=== PATIENT | male | born 1990 | race Caucasian/White ===

== ENCOUNTER 2024-09-11 06:15 | Emergency (ER) | payer BC, SELFPAY ==
--- NOTE | ~2024-09-11 | XR_ITS ---
EXAMINATION: XR chest 2V DATE: 09/11/2024 09:03 INDICATION: Palpitations. Dizziness. TECHNIQUE: Frontal and lateral views of the chest were obtained. COMPARISON: None. FINDINGS: There is no pneumonia, pleural effusion, or pneumothorax. The heart size is normal. 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 There is plate and screw fixation of left clavicle. IMPRESSION: 1. No acute cardiopulmonary disease. Reviewed, dictated and finalized at location [facility] [employer]
[2024-09-11 06:26] VITALS: BP 125/71; PULSE 84; RESP 15; TEMP 36.2; O2SAT 100
[2024-09-11 07:38] VITALS: BP 139/91; PULSE 74; RESP 16; O2SAT 99
--- NOTE | 2024-09-11 08:29 | ECG_ITS ---
Test Date: 2024-09-11 08:50:28 Measurements Intervals [place] Rate: 75 P: 61 UT: 180 QRS: 51 QRSD: 97 T: 40 QT: 379 QTc: 424 Interpretive Statements SINUS RHYTHM WITH SINUS ARRHYTHMIA No previous ECG available for comparison Electronically Signed On 09-11-2024 10:15:07 [employer] by Wellington Unger M.D.
--- NOTE | 2024-09-11 08:40 | ED_ITS ---
HPI - General Adult General Chief complaint: Anxiety Stated complaint: anxiety Time Seen by Provider: 09/11/24 07:58 History of Present Illness HPI narrative: Patient is a 34-year-old male who presents ER with reports of elevated heart rate. Occurred yesterday and his heart rate went up into the 170s. Last night he felt it again was not as high. No chest pain. It occurred after a hard workout. Has history of anxiety and has had his heart evaluated previously. Concerned he may have electrolyte abnormalities. No fevers or chills or sweats. No syncope. No exertional dyspnea or chest pain. Related Data Allergies Allergy/AdvReac Type Severity Reaction Status Date / Time No Known Allergies Allergy Verified 09/11/24 06:28 Review of Systems 2 Review of Systems: All systems reviewed & are unremarkable except as noted in HPI and below Constitutional: Constitutional: Reports no additional constitutional complaints Cardiovascular: Cardiovascular: Denies chest pain, Reports rapid heart rate and Denies radiating jaw, neck or arm pain Respiratory: Respiratory: Reports no additional respiratory complaints Gastrointestinal: Gastrointestinal: Reports no additional gastrointestinal complaints [facility] Past Medical History Medical History (Updated 09/11/24 @ 09:27 by Roni Garcia MD) Healthy adult male Surgical History Surgical History (Updated 09/11/24 @ 08:41 by Rnoi Garcia MD) No pertinent past surgical history Exam 2 Narrative: GENERAL: Well-appearing, well-nourished, and in no acute distress. HEAD: Normocephalic, atraumatic. ENT: Mucous membranes moist. CHEST: Clear to auscultation. No respiratory distress. HEART: Regular rate and rhythm. Normal peripheral pulses. ABDOMEN: Soft, nontender, nondistended. EXTREMITIES: Normal range of motion. No edema. SKIN: Warm, dry, no rash. NEURO: Alert and oriented x3. PSYCH: Normal mood and affect. Course Course Emergency Course: CBC/CMP/ magnesium normal. EKG unremarkable. Normal chest x-ray. Appropriate for discharge home. Likely anxiety. Vital Signs Vital signs: Vital Signs Temperature 97.1 F L 09/11/24 06:26 Pulse Rate 84 09/11/24 06:26 Respiratory Rate 15 09/11/24 06:26 Blood Pressure 125/71 09/11/24 06:26 Pulse Oximetry 100 09/11/24 06:26 Oxygen Delivery Room Air 09/11/24 06:26 Temperature 97.1 F L 09/11/24 06:26 Pulse Rate 76 09/11/24 09:08 Respiratory Rate 12 09/11/24 09:08 Blood Pressure 118/82 09/11/24 09:08 Pulse Oximetry 98 09/11/24 09:08 Oxygen Delivery Room Air 09/11/24 06:26 Medical Decision Making Vital Signs Vital Signs: Vital Signs Temperature 97.1 F L 09/11/24 06:26 Pulse Rate 84 09/11/24 06:26 Respiratory Rate 15 09/11/24 06:26 Blood Pressure 125/71 09/11/24 06:26 Pulse Oximetry 100 09/11/24 06:26 Oxygen Delivery Room Air 09/11/24 06:26 Temperature 97.1 F L 09/11/24 06:26 Pulse Rate 76 09/11/24 09:08 Respiratory Rate 12 09/11/24 09:08 Blood Pressure 118/82 09/11/24 09:08 Pulse Oximetry 98 09/11/24 09:08 Oxygen Delivery Room Air 09/11/24 06:26 Lab Data 09/11/24 08:41 09/11/24 08:41 Labs: Lab Results 09/11/24 Range/Units 08:41 WBC 7.3 (4.5-10.0) K/mm3 RBC 4.93 (4.6-6.20) M/mm3 Hgb 14.6 (14.0-18.0) g/dL Hct 43.5 (42.0-52.0) % MCV 88.2 (80-100) fl MCH 29.6 (26-34) pg MCHC 33.6 (32-36) g/dl RDW 13.5 (11.5-14.5) % Plt Count 197 (150-375) k/mm3 MPV 11.1 H (7.4-10.4) fl Immature Gran % (Auto) 0.1 (0-0.5) % Neut % (Auto) 65.0 (45.5-73.1) % Lymph % (Auto) 26.5 (18.3-44.2) % Mcdowell % (Auto) 5.8 (2.6-8.5) % Eos % (Auto) 2.2 (0-4.4) % Baso % (Auto) 0.4 (0.2-1.2) % Lymph # (Auto) 1.93 (0.9-3.2) K/mm3 Mcdowell # (Auto) 0.4 (0.1-0.6) K/mm3 Eos # (Auto) 0.2 (0-0.3) K/mm3 Baso # (Auto) 0.0 (0.0-0.1) K/mm3 Abs Immat Gran (auto) 0.01 (0.00-0.031) K/mm3 Absolute Neuts (auto) 4.7 (1.3-6.7) K/mm3 Absolute Nucleated RBC 0.000 (0.0-0.012) K/mm3 Nucleated RBC % 0.0 (0.0-0.2) % Sodium 138 (137-145) mmol/L Potassium 4.5 (3.4-5.0) mmol/L Chloride 107 (98-107) mmol/L Carbon Dioxide 26 (22-30) mmol/L Anion Gap 5 (4-12) mmol/L BUN 20 (9-20) mg/dL Creatinine 0.90 (0.7-1.3) mg/dL Estim Creat Clear Calc 115 ml/min Estimated GFR > 60 (59 - ) Glucose 94 (65-110) mg/dL Calcium 9.1 (8.4-10.2) mg/dL Magnesium 2.0 (1.6-2.3) mg/dL Total Bilirubin 0.4 (0.2-1.3) mg/dL AST 25 (17-59) U/L ALT 16 (6-50) U/L Alkaline Phosphatase 75 (38-126) U/L Total Protein 7.0 (6.3-8.2) g/dL Albumin 4.2 (3.5-5.1) g/dL Imaging Data Radiologist's impression: ITS Impressions Chest X-Ray 09/11/24 09:13 IMPRESSION: 1. No acute cardiopulmonary disease. ECG Data EKG #1: ECG completion date: 09/11/24 ECG completion time: 08:50 EKG Interpretation: normal rate (75), sinus rhythm, non-specific ST changes ( Early repolarization abnormality), normal QRS, normal QT and NL axis Discharge Plan Discharge Clinical Impression: Heart palpitations Patient Disposition: Home, Self-Care Condition: Stable Instructions: Heart Palpitations (ED) Additional Instructions: Please return to the emergency department if you develop severe and persistent chest pain, difficulty breathing, dizziness, leg swelling or if you are coughing up blood as these can be signs of a medical emergency. Please call your doctor for a follow up appointment to determine the need for further testing. Patient Language: Icelandic Follow-up/Referrals: PHYSICIAN NOT ON STAFF,NONSTAFF [Primary Care Provider] - 1 Week
[2024-09-11 08:46] LABS: Basophils Percent Auto 0.4 % (0.2-1.2); Eosinophils Absolute Auto 0.2 K/mm3 (0-0.3); Eosinophils Percent Auto 2.2 % (0-4.4); Hematocrit 43.5 % (42.0-52.0); Hemoglobin 14.6 g/dL (14.0-18.0); Immature Granulocyte Absolute 0.01 K/mm3 (0.00-0.031); Immature Granulocyte Percent A 0.1 % (0-0.5); Lymphocytes Absolute Auto 1.93 K/mm3 (0.9-3.2); Lymphocytes Percent Auto 26.5 % (18.3-44.2); Mean Corpuscular HGB Conc 33.6 g/dl (32-36); Mean Corpuscular Hemoglobin 29.6 pg (26-34); Mean Corpuscular Volume 88.2 fl (80-100); Mean Platelet Volume 11.1 fl (7.4-10.4); Monocytes Absolute Auto 0.4 K/mm3 (0.1-0.6); Monocytes Percent Auto 5.8 % (2.6-8.5); Neutrophils Absolute Auto 4.7 K/mm3 (1.3-6.7); Platelet Count Result 197 k/mm3 (150-375); Red Blood Count 4.93 M/mm3 (4.6-6.20); Red Cell Distribution Width 13.5 % (11.5-14.5); White Blood Count 7.3 K/mm3 (4.5-10.0)
[2024-09-11 09:08] VITALS: BP 118/82; PULSE 76; RESP 12; O2SAT 98
[2024-09-11 09:18] LABS: Alanine Aminotransferase 16 U/L (6-50); Albumin Level 4.2 g/dL (3.5-5.1); Alkaline Phosphatase 75 U/L (38-126); Anion Gap 5 mmol/L (4-12); Aspartate Amino Transferase 25 U/L (17-59); Bilirubin,Total 0.4 mg/dL (0.2-1.3); Blood Urea Nitrogen 20 mg/dL (9-20); Calcium 9.1 mg/dL (8.4-10.2); Carbon Dioxide 26 mmol/L (22-30); Chloride 107 mmol/L (98-107); Estimated CRCL calculation 115 ml/min; Estimated Glomerular Filt Rate > 60; Glucose 94 mg/dL (65-110); Potassium 4.5 mmol/L (3.4-5.0); Sodium 138 mmol/L (137-145)
[2024-09-11 09:54] VITALS: BP 125/82; PULSE 81; RESP 18; TEMP 36.5; O2SAT 100
--- OUTSIDE RECORDS SUMMARY | 2024-09-18 06:27 | XMS_ITS | Encounter Summary ---
Author Organization [facility] Address [facility] access hospital[address] [facility] [place] [address] [place] [address] Care Team Providers Care Printing Technician Name Role Phone Unavailable Primary Care Provider Unavailabl e Encounter Details Date Type Department Care Team (Late st Contact Info) Description 07/08/[address] 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
--- OUTSIDE RECORDS SUMMARY | 2024-09-18 06:27 | XMS_ITS | Encounter Summary ---
Author Organization [facility] Address [address] [place] [address]. 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 No / Unsure 05/07/2022 2:24 AM CDT documented as of this encounter Plan of Treatment Not on file documented as of this encounter Visit Diagnoses Not on filedocumented in this encounter Care Teams Parts Identification Technician Relationship Specialty Start Date End Date Amanda Brooks MD [address] [place] [address] PCP - General FAMILY PRACTICE 05/07/22 documented as of this encounter
--- OUTSIDE RECORDS SUMMARY | 2024-09-18 06:27 | XMS_ITS | Encounter Summary ---
Author Organization [facility] Address [address] [place] [address]. [place] [address] [place] [address] Care Team Providers Care Wooden Box Maker Name Role Phone Amanda Brooks MD Primary Care Provider [phone] Reason for Visit * Reason Comments Chest Pain Encounter Details Date Type Department Care Team (Late st Contact Info) Description 05/07/2022 12:57 AM CDT - 05/07/2022 3:14 AM CDT Emergency [facility] Emergency [address] [place] [address] Neeraj Adames, CAMILA [address] [place] [address] Chest Pain Discharge Disposition: Home or Self Care (Routine Discharge) Social History Tobacco Use Types Packs/Day Years Used Date Smoking Tobacco: Never Assessed Sex and Gender Information Value Date Recorded Sex Assigned at Not on file Legal Sex Male 10:14 PM SHIP/REC/DOC CONTROL Gender Identity Not on file Sexual Orientation Not on file COVID-19 Exposure Response Date Recorded In the last 10 days, have yo u been in contact with someone who was confirmed or suspected to have Coronavirus/COVID-19? No / Unsure 05/07/2022 2:24 AM CDT documented as of this encounter Last Filed Vital Signs Vital Sign Reading Time Taken Comments Blood Pressure 112/83 05/07/2022 2:25 AM CDT Pulse 60 05/06/2022 9:17 PM CDT Temperature 36.7 ??C (98 ??F) 05/06/2022 9:17 PM CDT Respiratory Rate 16 05/07/2022 2:25 AM CDT Oxygen Saturation 100% 05/07/2022 2:25 AM CDT Inhaled Oxygen Concentration - - Weight 94 kg (207 lb 3.7 oz) 05/06/2022 9:17 PM CDT Height 184.2 cm (6' 0.5 ) 05/06/2022 9:17 PM CDT Body Mass Index 27.72 05/06/2022 9:17 PM CDT documented in this encounter Discharge Instructions * Discharge Instructions* Neeraj Adames NP - 05/07/2022 2:40 AM CDT Please read and follow additional written instructions provided. If prescribed medications, please fill them and take as directed. Consume at least two liters of fluid daily - preferably water. Unless otherwise unable to (such as allergic to or instructed not to use), you may take Tylenol 1000 mg every 6 hours and ibuprofen 600 mg every 6 hours as needed for pain/fever. Follow up with your doctor or doctor referral, call next business day to schedule an appointment for ED follow up in 7-10 days. Follow up with your doctor in 3 days if no improvement. Contact your doctor or return to ER if any new concerning symptoms. Thank you for choosing [facility] to serve you today. As discussed, it is important that you followup with your health care provider for examination as well as possible further testing and therapy. * Attachments The following attachments cannot be sent through Care Everywhere. * Chest Pain That Is Not Caused by the Heart Discharge Instructions (Gabonese) documented in this encounter ED Notes * Neeraj Adames NP - 05/07/2022 12:59 AM CDTAssociated Order(s): EKG Reading Chief Complaint Chief Complaint Patient presents with ??? Chest Pain History of Present Illness Patient is a 31-year-old male with a medical history of anxiety, that presents to the ED with complaints of midsternal chest pain. Onset of the chest pain was 8 PM yesterday, there are no aggravatingfactors, no relieving factors, no treatments tried. Patient denies any known injuries, indicates that the chest pain is now gone, went away after approximately 10 minutes, no previous cardiac history. The patient indicates that he exercises frequently and he never has chest pain during exercise. Ofnote, the patient indicates that he is weaning himself off of Klonopin for anxiety, has taken less today than he usually does. Patient indicates he does take propranolol as well for anxiety. The patient denies any current chest pain, shortness of breath, focal changes, or any other acute symptom. Medical History ALLERGIES: No Known Allergies MEDICATIONS: Prior to Admission medications Not on File PAST MEDICAL HISTORY: No past medical history on file. PAST SURGICAL HISTORY: No past surgical history on file. FAMILY HISTORY: No family history on file. SOCIAL HISTORY: Review of Systems Review of Systems Constitutional: Negative. HENT: Negative. Eyes: Negative. Respiratory: Negative. Cardiovascular: Positive for chest pain. Gastrointestinal: Negative. Genitourinary: Negative. Musculoskeletal: Negative. Skin: Negative. Neurological: Negative. Psychiatric/Behavioral: Negative. Physical Exam Filed Vitals: 05/06/22 2117 05/07/22 0225 BP: 125/70 112/83 Pulse: 60 Resp: 12 16 Temp: 98 ??F (36.7 ??C) TempSrc: Oral SpO2: 100% 100% Weight: 94 kg (207 lb 3.7 oz) Height: 6' 0.5 (1.842 m) Physical Exam Vitals reviewed. Constitutional: General: He is not in acute distress. Appearance: Normal appearance. He is not ill-appearing, toxic-appearing or diaphoretic. HENT: Head: Normocephalic. Nose: Nose normal. Eyes: General: Right eye: No discharge. Left eye: No discharge. Pupils: Pupils are equal, round, and reactive to light. Cardiovascular: Rate and Rhythm: Normal rate and regular rhythm. Pulses: Normal pulses. Heart sounds: Normal heart sounds. Pulmonary: Effort: Pulmonary effort is normal. No respiratory distress. Breath sounds: Normal breath sounds. No stridor. No wheezing, rhonchi or rales. Chest: Chest wall: No tenderness. Musculoskeletal: General: Normal range of motion. Skin: General: Skin is warm. Capillary Refill: Capillary refill takes less than 2 seconds. Neurological: Mental Status: He is alert and oriented to person, place, and time. Psychiatric: Mood and Affect: Mood normal. Behavior: Behavior normal. 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4 - 10.4 FL ABS. NEUTROPHILS 2.31 1.60 - 8.30 x10'3/uL ABS. LYMPHOCYTES 3.28 0.80 - 4.70 x10'3/uL ABS. MONOCYTES 0.59 0.00 - 1.50 x10'3/uL ABS. EOSINOPHILS 0.22 0.00 - 0.40 x10'3/uL ABS. BASOPHILS 0.03 0.00 - 0.20 x10'3/uL ABS. IMMATURE GRANULOCYTES 0.01 0.00 - 0.03 x10'3/uL ABS. NUCLEATED RBC'S 0.00 0.0 x10'3/uL BASIC METABOLIC PANEL Result Value Ref Range SODIUM 140 136 - 145 MMOL/L POTASSIUM 3.9 3.5 - 5.1 MMOL/L CHLORIDE S/P/B 108 (H) 98 - 107 MMOL/L CO2 26.2 21.0 - 32.0 MMOL/L GLUCOSE 98 74 - 106 MG/DL BUN 21 (H) 7 - 18 MG/DL CREATININE S/P/B 0.99 0.70 - 1.30 MG/DL CALCIUM 9.0 8.5 - 10.1 MG/DL ANION GAP 5.8 5.0 - 15.0 MMOL/L OSMOLALITY (CALC) 293 MOSM/KG GFR ESTIMATE >90 >90 ML/MIN/1.73 M2 GFR NOTES GFR REFERENCES: TROPONIN, QUANT Result Value Ref Range TROPONIN I HIGH SENSITIVITY 7 0 - 78 ng/L LIPASE Result Value Ref Range LIPASE 194 73 - 393 UNITS/L HEPATIC FUNCTION PANEL Result Value Ref Range BILIRUBIN TOTAL S/P/B 0.2 0.2 - 1.0 MG/DL BILIRUBIN DIRECT S/P/B 0.1 0.0 - 0.2 MG/DL ALKALINE PHOSPHATASE S/P/B 46 45 - 115 U/L AST 20 15 - 37 U/L ALT 21 16 - 61 U/L TOTAL PROTEIN S/P/B 7.2 6.4 - 8.2 G/DL ALBUMIN S/P/B 4.0 3.4 - 5.0 G/DL MAGNESIUM Result Value Ref Range MAGNESIUM 2.2 1.6 - 2.6 MG/DL THYROID STIM HORMONE, TSH Result Value Ref Range TSH 1.740 0.358 - 3.740 uIU/ML IMAGING STUDIES XR CHEST PA+LAT Final Result by User, [email or web address] (05/07 120) Date: 05/07/2022 1:10 AM Exam: XR CHEST PA+LAT Comparison: Chest radiography dated 12/04/2008. Technique: Two-view chest. History: Left-sided chest pain. Findings: The cardiac silhouette and pulmonary vascularity are within normal limits. There are no consolidations nor pleural effusions. There is no pneumothorax. There are calcified lymph nodes in the right hilum and central chest. The osseous structures appear normal. Impression: No acute cardiopulmonary disease process. Referred By: Interpreted By: Rebel Rincon MD, 05/07/2022 1:18 AM EKG Reading Date/Time: 05/07/2022 1:15 AM Performed by: Neeraj Adames NP Authorized by: Neeraj Adames NP Interpreted by ED physician (Dr. Silver) Comparison: not compared with previous ECG Previous ECG: no previous ECG available Rhythm: sinus rhythm Rate: normal QRS axis: normal Clinical impression: normal ECG Comments: No ST elevation. ED Course / Medical Decision Making VS are unremarkable. The patient is non toxic appearing. Differential diagnoses were considered anddiscussed with the patient, the patient's history, physical exam, and ancillary studies were taken into consideration for the patient's treatement. After reviewing the information and discussing the potential outcomes/risks/benefits, the patient's disposition was agreed upon. Portions of this note have been documented using software voice technology. Please excuse any typos. Unless otherwise documented, patient was not directly assessed/treated by Attending Physician. Attending Physician available for consult as needed, Dr. Silver. ED Course as of 05/07/22240May 07, 2022 0238 TSH: 1.740 [JE] 0238 MAGNESIUM: 2.2 [JE] 0238 LIPASE: 194 [JE] 0238 TROPONIN I HIGH SENSITIVITY: 7 [JE] 0238 TSH: 1.740 [JE] 0238 HEPATIC FUNCTION PANEL Unremarkable. [JE] 0238 CBC W/DIFF AUTOMATED(!) Unremarkable. [JE] 0238 BASIC METABOLIC PANEL(!) Unremarkable. [JE] 0239 XR chest radiologist Impression: No acute cardiopulmonary disease process. [JE] 0239 I discussed with the patient his results of his labs which were unremarkable, troponin negative, chest x-ray unremarkable, EKG normal sinus rhythm. Advised the patient this could be as a result of him weaning off of his benzodiazepine medication, could be musculoskeletal in nature, I discussedreturn precautions with the patient in detail. The patient verbalized understanding agreement the plan of care. 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 Patient states this occurred 4 months prior and tests were normal. Mahamed stateshx of anxiety, no known cardiac or respiratory hx documented in this encounter Plan of Treatment Not on file documented as of this encounter Procedures Procedure Name Priority Date/Time Associated Diagnosis Comments BASIC METABOLIC PANEL STAT 05/07/2022 1:24 AM CDT HEPATIC FUNCTION PANEL STAT 1:24 AM CDT TROPONIN, QUANT STAT 05/07/2022 1:24 AM CDT THYROID STIM HORMONE TSH STAT 1:24 AM CDT MAGNESIUM STAT 05/07/2022 1:24 AM CDT LIPASE STAT 05/07/2022 1:24 AM CDT CBC W/DIFF AUTOMATED STAT 05/07/2022 1:23 AM CDT ELECTROCARDIOGRAM REPORT Routine 1:15 AM CDT XR CHEST PA+LAT STAT 05/07/2022 1:15 AM CDT ECG 12-LEAD STAT 05/07/2022 12:00 AM CDT documented in this encounter Results * THYROID STIM HORMONE, TSH (05/07/2022 1:24 AM CDT) TSH 1.740 0.358 - 3.740 uIU/ML 05/07/2022 2:01 AM CDT [facility] Comment: ASSAY PERFORMED BY CHEMILUMINESCENCE METHODOLOGY USING [employer]. PATIENT RESULTS DETERMINED BY ASSAYS USING DIFFERENT MANUFACTURERS FOR METHODS MAY NOT BE COMPARABLE. 05/07/2022 1:24 AM CDT Neeraj Adames NP LABORATORY Final Result [facility] [address] [place] [address], [phone] * MAGNESIUM (05/07/2022 1:24 AM CDT) MAGNESIUM 2.2 1.6 - 2.6 MG/DL 05/07/2022 2:01 AM CDT [facility] 05/07/2022 1:24 AM CDT Neeraj Adames NP LABORATORY Final Result Performing Organization Address [facility] Co de Phone Number [facility] [address] [place] [address], [phone] * HEPATIC FUNCTION PANEL (05/07/2022 1:24 AM CDT) BILIRUBIN TOTAL S/P/B 0.2 0.2 - 1.0 MG/DL 05/07/2022 2:01 AM CDT [facility] BILIRUBIN DIRECT S/P/B 0.1 0.0 - 0.2 MG/DL 05/07/2022 2:01 AM CDT [facility] ALKALINE PHOSPHATASE S/P/B 46 45 - 115 U/L 05/07/2022 2:01 AM CDT [facility] AST 20 15 - 37 U/L 05/07/2022 2:01 AM CDT [facility] ALT 21 16 - 61 U/L 05/07/2022 2:01 AM CDT [facility] TOTAL PROTEIN S/P/B 7.2 6.4 - 8.2 G/DL 05/07/2022 2:01 AM CDT [facility] ALBUMIN S/P/B 4.0 3.4 - 5.0 G/DL 05/07/2022 2:01 AM CDT [facility] 05/07/2022 1:24 AM CDT us Neeraj Adames NP LABORATORY Final Result Performing Organization Address [facility] Co de Phone Number [facility] [address] [place] [address], [place] [phone] * LIPASE (05/07/2022 1:24 AM CDT) LIPASE 194 73 - 393 UNITS/L 05/07/2022 2:01 AM CDT [facility] 05/07/2022 1:24 AM CDT us Neeraj Adames NP LABORATORY Final Result Performing Organization Address [facility] de Phone Number [facility] [address] [place] [address], [phone] * TROPONIN, QUANT (05/07/2022 1:24 AM CDT) TROPONIN I HIGH SENSITIVITY 7 0 - 78 ng/L 05/07/2022 2:01 AM CDT [facility] 05/07/2022 1:24 AM CDT us Neeraj Adames NP LABORATORY Final Result Performing Organization Address [facility] Co de Phone Number [facility] [address] [place] [address], [place] [phone] * (ABNORMAL) BASIC METABOLIC PANEL (05/07/2022 1:24 AM CDT) SODIUM S/P/B 140 136 - 145 MMOL/L 05/07/2022 2:01 AM CDT [facility] POTASSIUM S/P/B 3.9 3.5 - 5.1 MMOL/L 05/07/2022 2:01 AM CDT [facility] CHLORIDE S/P/B 108(H) 98 - 107 MMOL/L 05/07/2022 2:01 AM [facility] CO2 26.2 21.0 - 32.0 MMOL/L 05/07/2022 2:01 AM [facility] GLUCOSE 98 74 - 106 MG/DL 05/07/2022 2:01 AM [facility] BUN 21(H) 7 - 18 MG/DL 05/07/2022 2:01 AM [facility] CREATININE S/P/B 0.99 0.70 - 1.30 MG/DL 05/07/2022 2:01 AM [facility] CALCIUM S/P/B 9.0 8.5 - 10.1 MG/DL 05/07/2022 2:01 AM [facility] ANION GAP 5.8 5.0 - 15.0 MMOL/L 05/07/2022 2:01 AM [facility] OSMOLALITY (CALC) 293 MOSM/KG 022 2:01 AM [facility] Comment:REFERENCE RANGE NOT ESTABLISHED GFR ESTIMATE >90 >90 ML/MIN/1. 73 M2 05/07/2022 2:01 AM [facility] GFR NOTES GFR REFERENCE S: 05/07/2022 2:01 AM [facility] Comment: THE ESTIMATED GFR IS CALCULATED USING THE 2020 CKD-EPI EQUATION. THE FOLLOWING CATEGORIES FOR GRADING RENAL FUNCTION ARE RECOMMENDED BY THE INTERNATIONAL SOCIETY OF NEPHROLOGY (KDIGO 2012 CLINICAL PRACTICE GUIDELINE). G1,NORMAL OR HIGH: >89 ml/min/1.73 m2 G2,MILDLY DECREASED: 60-89 ml/min/1.73 m2 G3A,MILDLY TO MODERATELY DECREASED: 45-59 ml/min/1.73 m2 G3B,MODERATELY TO SEVERELY DECREASED: 30-44 ml/min/1.73 m2 G4,SEVERELY DECREASED: 15-29 ml/min/1.73 m2 G5,KIDNEY FAILURE: <15 ml/min/1.73 m2 05/07/2022 1:24 AM CDT Neeraj Adames NP LABORATORY Final Result [facility] [address] [place] [address], [phone] * (ABNORMAL) CBC W/DIFF AUTOMATED (05/07/2022 1:23 AM CDT) WBC 6.4 4.0 - 10.8 x10'3/uL 05/07/2022 1:33 AM CDT [facility] RBC 4.83 4.50 - 6.10 x10'6/uL 05/07/2022 1:33 AM CDT [facility] HGB 14.4 13.0 - 18.0 G/DL 05/07/2022 1:33 AM CDT [facility] HCT 42.5 37.0 - 52.0 % 05/07/2022 1:33 AM CDT [facility] MCV 88.0 78.0 - 100.0 FL 05/07/2022 1:33 AM CDT [facility] MCH 29.8 27.0 - 31.0 PG 05/07/2022 1:33 AM CDT [facility] MCHC 33.9 33.0 - 36.0 G/DL 05/07/2022 1:33 AM CDT [facility] RDW 12.4 11.5 - 14.5 % 05/07/2022 1:33 AM CDT [facility] PLT 197 150 - 350 x10'3/uL 05/07/2022 1:33 AM CDT [facility] MPV 11.4(H) 7.4 - 10.4 FL 05/07/2022 1:33 AM CDT [facility] ABS. NEUTROPHILS 2.31 1.60 - 8.30 x10'3/uL 05/07/2022 1:33 AM CDT [facility] ABS. LYMPHOCYTES 3.28 0.80 - 4.70 x10'3/uL 05/07/2022 1:33 AM CDT [facility] ABS. MONOCYTES 0.59 0.00 - 1.50 x10'3/uL 05/07/2022 1:33 AM CDT [facility] ABS. EOSINOPHILS 0.22 0.00 - 0.40 x10'3/uL 05/07/2022 1:33 AM CDT [facility] ABS. BASOPHILS 0.03 0.00 - 0.20 x10'3/uL 05/07/2022 1:33 AM CDT [facility] ABS. IMMATURE GRANULOCYTES 0.01 0.00 - 0.03 x10'3/uL 05/07/2022 1:33 AM CDT [facility] ABS. NUCLEATED RBC'S 0.00 0.0 x10'3/uL 05/07/2022 1:33 AM CDT [facility] 05/07/2022 1:23 AM CDT Neeraj Adames NP LABORATORY Final Result Performing Organization Address City/State/[facility] Co de Phone Number [facility] [address] [place] [address], [phone] * EKG Reading (05/07/2022 1:15 AM CDT) Narrative Naresh Silver MD - 05/07/2022 1:15 AM CDT Neeraj Adames NP ? 05/07/2022 ??2:41 AM EKG Reading Date/Time: 05/07/2022 1:15 AM Performed by: Neeraj Adames NP Authorized by: Neeraj Adames NP Interpreted by ED physician (Dr. Silver) Comparison: not compared with previous ECG Previous ECG: no previous ECG available Rhythm: sinus rhythm Rate: normal QRS axis: normal Clinical impression: normal ECG Comments: No ST elevation. Neeraj Adames NP [place] [facility] Final Result * XR CHEST PA+LAT (05/07/2022 1:15 AM CDT) Anatomical Region Laterality Modality Chest Radiographic Vernell ging 05/07/2022 1:18 AM CDT Impressions 05/07/2022 1:19 AM CDT Impression: No acute cardiopulmonary disease process. Referred By: ?? Interpreted By: Rebel Rincon MD, 05/07/2022 1:18 AM Narrative 05/07/2022 1:19 AM CDT Date: 05/07/2022 1:10 AM Exam: XR CHEST PA+LAT Comparison: Chest radiography dated 12/04/2008. Technique: Two-view chest. History: Left-sided chest pain. Findings: The cardiac silhouette and pulmonary vascularity are within normal limits. ??There are no consolidations nor pleural effusions. ??There is no pneumothorax. ??There are calcified lymph nodes in the right hilum and central chest. ??The osseous structures appear normal. Procedure Note Rebel Rincon MD - 05/07/2022 Date: 05/07/2022 1:10 AM Exam: XR CHEST PA+LAT Comparison: Chest radiography dated 12/04/2008. Technique: Two-view chest. History: Left-sided chest pain. Findings: The cardiac silhouette and pulmonary vascularity are withinnormal limits. There are no consolidations nor pleural effusions. Thereis no pneumothorax. There are calcified lymph nodes in the right hilumand central chest. The osseous structures appear normal. Impression: No acute cardiopulmonary disease process. Referred By: Interpreted By: Rebel Rincon MD, 05/07/2022 1:18 AM Neeraj Adames NP GENERAL IMAGING Final Result * ECG 12 lead (05/07/2022 12:00 AM CDT) 05/07/2022 Narrative [facility] - 05/07/2022 3:59 PM CDT ?SJS-ED ? Test Date: ?2022-05-06 Pat Name: ? WILFRIDO HARRIS ?Department: ?? 70 ? Room: ? Gender: ? Male ? 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 Requested By: NICK CALHOUN Order Number: [id number] ? Reading MD: ?? Vidhya Carrasco ? Measurements Intervals ?[place] ? Rate: ? 62 ? P: ?53 WA: ? 177 ?QRS: ?64 QRSD: ? 102 ?T: ?56 QT: ? 405 ? QTc: ?413 ? 

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
--- OUTSIDE RECORDS SUMMARY | 2024-09-18 06:27 | XMS_ITS | Encounter Summary ---
Author Organization [facility] Address [address] [place] [address]. [place] [address] [place] [address] Care Team Providers Care Senior Analyst Market Intelligence Name Role Phone Unavailable Primary Care Provider Unavailabl e Encounter Details Date Type Department Care Team (Late st Contact Info) Description 12/04/[address] 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
--- OUTSIDE RECORDS SUMMARY | 2024-09-18 06:27 | XMS_ITS | Clinical Summary ---
Author Organization [facility] Address [address] [place] [address]. 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 Gender Identity Not on file Sexual Orientation Not on file Last Filed Vital Signs Vital Sign Reading [...] Mass Index 27.72 05/06/2022 9:17 PM CDT Plan of Treatment Health Maintenance Due Date Last Done Comments Annual Physical 1993 DTaP, Tdap and Td Vaccines (6 - Tdap) 2001 01/20/1996, 01/25/1992, 01/19/1991, Additional history exists Hepatitis C 2008 COVID-19 Vaccine ( season) 2024 06/03/2021, 05/10/2021 Influenza Adult (#1) 2024 Hepatitis B Vaccines Completed 02/23/2001, 12/16/2000, 07/14/2000 HPV Vaccines Aged Out No longer eligi ble based on patient's age to complete this topic Meningococcal Vaccine Aged Out No kat roland eligible based on patient's age to complete this topic Pneumococcal Vaccine: Pediatrics (0 to 5 Years) and At-Risk Patients (6 to 64 Years) Aged Out No longer eligible based on patient's age to complete this topic RSV Immunizations Under 20 Months Aged Out No longer eligible based on patient's age to complete this topic Insurance [employer] Care Teams Security System Installer Relationship Specialty Start Date End Date Amanda Brooks MD [address] [place] [address] PCP - General FAMILY PRACTICE 05/07/22
--- OUTSIDE RECORDS SUMMARY | 2024-09-18 06:27 | XMS_ITS | Encounter Summary ---
Author Organization [facility] Address [address] [place] [address]. [place] [address] [place] [address] Care Team Providers Care Tallow Refiner Name Role Phone Unavailable Primary Care Provider Unavailabl e Encounter Details Date Type Department Care Team (Late st Contact Info) Description 11/27/[address] 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
== END 2024-09-11 09:55 | disposition home or self-care (01) ==
PROVIDERS: Emergency Provider Emergency Medicine
DX: R00.2 Palpitations (principal)
CPT/HCPCS: 36415; 71046; 80053; 83735; 85025; 93005; 99283

== ENCOUNTER 2024-09-22 09:53 | Outpatient (CLI) | payer BC, SELFPAY ==
[2024-09-22 12:56] LABS: Cholesterol 297 mg/dL (0-200); HDL Direct 68 mg/dL; Triglycerides 42 mg/dL (<150)
[2024-09-22 13:09] LABS: LDL Cholesterol Direct 176 mg/dL
== END 2024-09-22 09:54 | disposition home or self-care (01) ==
LOC: ANHGOSHLAB 09:54
PROVIDERS: PCP Family Medicine; Visit Provider Student in an Organized Health Care Education/Training Program
DX: R53.83 Other fatigue (principal); Z13.220 Encounter for screening for lipoid disorders; Z13.29 Encounter for screening for other suspected endocrine disorder
CPT/HCPCS: 36415; 80061; 82607; 84443

== ENCOUNTER 2025-03-25 12:01 | Emergency (ER) | payer BC, SELFPAY ==
--- NOTE | ~2025-03-25 | XR_ITS ---
CHEST RADIOGRAPH, PA AND LATERAL CLINICAL HISTORY: palpitations . COMPARISON: 09/11/2024 TECHNIQUE: PA and lateral views of the chest. FINDINGS The cardiomediastinal silhouette is unremarkable. The lungs are clear. Plate fixation of the left clavicle is redemonstrated. IMPRESSION: No focal infiltrate or effusion. Reviewed, dictated and finalized at location A.
--- NOTE | 2025-03-25 12:02 | ECG_ITS ---
Test Date: 2025-03-25 12:09:44 Measurements Intervals Grant Rate: 92 P: 54 MA: 136 QRS: 46 QRSD: 101 T: 45 QT: 355 QTc: 439 Interpretive Statements SINUS RHYTHM Compared to ECG 09/11/2024 08:50:28 no change Electronically Signed On 03-25-2025 14:10:35 CDT by Callum Huffman M.D.
--- OUTSIDE RECORDS SUMMARY | 2025-03-25 12:03 | XMS_ITS | Clinical Summary ---
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 Gender Identity Not on file Sexual Orientation Not on file Last Filed Vital Signs Vital Sign Reading Time Taken Comments Blood Pressure 112/83 05/07/2022 2:25 AM CDT Pulse 60 05/06/2022 9:17 PM CDT Temperature 36.7 C (98 F) 05/06/2022 9:17 PM CDT Respiratory Rate 16 05/07/2022 2:25 AM CDT Oxygen Saturation 100% 05/07/2022 2:25 AM CDT Inhaled Oxygen Concentration - - Weight 94 kg (207 lb 3.7 oz) 05/06/2022 9:17 PM CDT Height 184.2 cm (6' 0.5) 05/06/2022 9:17 PM CDT Body Mass Index 27.72 05/06/2022 9:17 PM CDT Plan of Treatment Health Maintenance Due Date Last Done Comments Annual Physical 1993 DTaP, Tdap and Td Vaccines (6 - Tdap) 2001 01/20/1996, 01/25/1992, 01/19/1991, Additional history exists Hepatitis C 2008 COVID-19 Vaccine ( season) 2024 06/03/2021, 05/10/2021 Hepatitis B Vaccines Completed 02/23/2001, 12/16/2000, 07/14/2000 HPV Vaccines Aged Out No longer eligi ble based on patient's age to complete this topic Meningococcal B Vaccine Aged Out No l onger eligible based on patient's age to complete this topic Meningococcal Vaccine Aged Out No kat roland eligible based on patient's age to complete this topic Pneumococcal Vaccine: Pediatrics (0 to 5 Years) and At-Risk Patients (6 to 49 Years) Aged Out No longer eligible based on patient's age to complete this topic RSV Immunizations Under 20 Months Aged Out No longer eligible based on patient's age to complete this topic Insurance AETNA Care Teams Pharmacognosist Relationship Specialty Start Date End Date Amanda Brooks MD [address] [place], [place] [address] PCP - General FAMILY PRACTICE 05/07/22
--- OUTSIDE RECORDS SUMMARY | 2025-03-25 12:04 | XMS_ITS | Data Portability ---
Author Organization [facility], [address] [facility] ([place]) Address [address] [place] [address] Assessment Encounter Date Assessment Date Assessment LastModified by Organization Details LastModified Time 12/21/2024 12/21/2024 SUBJECTIVE: Wilfrido Harris returns today. He has been having numbness to his 4th and 5th digits of the left hand. He wanted to know if it was from his collar bone. He has noticed that it happens worse when he is sleeping or when his elbow is bent. He has no tenderness over his collar bone. No compression of his collar bone or neck area increases his symptoms. Elbow flexion testing will mildly increase his symptoms. REVIEW OF SYSTEMS: CONST: No complaints of significant weight changes, fevers or chills. ENT: No complaints of neck pain. RESP: No complaints of pleuritic pain or shortness of breath. CV: No complaints of chest pain. GI: No complaints of abdominal pain, nausea, vomiting, diarrhea, constipation. MSK: No complaints of leg pain. SKIN: No complaints of itching, rashes or skin lesions. PSYCH: No irritability. NEURO: No neuropathic pain or weakness. H/L/IMM: No complaints of excessive bruising or bleeding. Reviewed past medical history, surgical history, family history, social history. No changes except as noted. PHYSICAL EXAMINATION: CONST: Patient is communicative, alert and oriented. EYES: No icterus or redness. RESP: Breathing appears normal, unlabored. GI: Abdomen nondistended. SKIN: No cyanosis. Warm and dry. No jaundice. PSYCH: Stable mood and affect. NEURO: No speech difficulty. Normal gait. Reviewed recent diagnostic tests, lab work, and imaging. These were reviewed with the patient. Phalen s and Tinel s are negative. There is no subluxation of the ulnar nerve. He has normal intrinsic strength and normal sensibility. Normal thenar and intrinsic musculature. IMPRESSION/KILEY N: I think he has some early cubital tunnel syndrome. He has noticed that if he keeps his elbow straight his symptoms get much better. He is going to continue doing this. He will see us back if he has any further problems. [email or web address] Not available 12/21/2024 16:57:17 Plan of Treatment Reminders Order Date Submit Date Provider Last Modified By Organization Details Last Modified Time Details Appointments None record ed. Lab None record ed. Referral None record ed. Procedures None record ed. Surgeries None record ed. Imaging None record ed. Medication Orders None record ed. Patient TargetsNo targets recorded. Patient InstructionsNo instructions recorded. Reason for Referral None Reported. Medical Equipment None Reported. Medications Name Sig Start Date Stop Date Status Note LastModified by Organization Details LastModified Time propranolol 40 mg tablet TAKE 1 TABLET BY MOUTH DAILY NEEDED FOR ANXIETY active Not Available Not Available No t Available Vitals None Recorded Social History Question Answer Notes LastModified by [employer] Details LastModified Time Tobacco Smoking Status Never Smoker Not Available Health Note 12/20/2024 08:53:51 Do You Have An Advance Directive? No [email or web address] Information not available 12/20/2024 What Is Your Level Of Caffeine Consumption? Moderate [email or web address] Information not available 12/20/2024 How Many Times Per Week Do You Exercise? 1-2 Times Per Week [email or web address] Information not available 12/20/2024 Smokeless Tobacco? Former Smokeless Tobacco User [email or web address] Information not available 12/20/2024 What Was The Date Of Your Most Recent Tobacco Screening? 12/21/2024 [email or web address] Information not available 12/20/2024 What Is Your Relationship Status? Single [email or web address] Information not available 12/20/2024 Sex: Unknown Functional Status Question Answer Note LastModified by [employer] Details LastModified Time Do you use any illicit or recreational drugs? No [email or web address] Information not available 12/20/2024 What is your level of alcohol consumption? None [email or web address] Information not available 12/20/2024 Are you currently employed? 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 Moderate [email or web address] Information not available 12/20/2024 Mental Status None recorded. Family History Relationship Description Onset Age of this Age Resolved Age Notes LastModified by Organization Details LastModified Time Maternal Grandfather Family history of malignant neoplasm [email or web address] Not available 2024 08:53:50 Paternal Grandfather Diabetes mellitus [email or web address]-5 Not available 2024 08:53:50 Unspecified Relation Heart disease [email or web address] Not available 2024 08:53:50 Paternal Grandmother Cerebrovascu lar accident [email or web address] Not available 09/2024 08:53:50 Medical History Condition Response Anxiety Disorder N Diabetes N Bleeding Disorder N Attention-deficit Hyperactivity Disorder N High Blood Pressure N Arthritis N Hyperlipidemia N Cancer N Thyroid Problems N Stroke N COPD N Depression N Asthma N Seizures N Anemia N Heart Disease N Fibromyalgia N Osteoporosis N Kidney Disease N Immunizations Vaccine Type Date Status Note Provider Nam e and Address Organization Details Recorded Time Hib, unspecified formulation 03/21/1992 [facility]/21/2024 13:42:17 MMR 01/20/1996 [facility]/21/2024 13:42:17 MMR 01/25/1992 [facility] 12/21/2024 13:42:17 COVID-19, mRNA, LNP-S, PF, 30 mcg/0.3 mL dose 05/10/2021 [facility]/21/2024 13:42:17 COVID-19, mRNA, LNP-S, PF, 30 mcg/0.3 mL dose 06/03/2021 [facility] 12/21/2024 13:42:17 DTP 1990 [facility] 12/21/2024 13:42:17 DTP 1990 [facility]/21/2024 13:42:17 DTP 01/19/1991 completed Haylee Borjas null, [facility] 12/21/2024 13:42:17 DTP 01/25/1992 completed Haylee Borjas null, [facility] 12/21/2024 13:42:17 OPV 1990 completed Haylee Borjas null, [facility] 12/21/2024 13:42:17 OPV 1990 completed Haylee Borjas null, [facility] 12/21/2024 13:42:17 OPV 01/20/1996 completed Haylee Borjas null, [facility] 12/21/2024 13:42:17 OPV 01/25/1992 completed Haylee Borjas null, [facility] 12/21/2024 13:42:17 Hep B, adolescent or pediatric 12/16/2000 completed Haylee Borjas null, [facility] 12/21/2024 13:42:17 Hep B, adolescent or pediatric 02/23/2001 completed Haylee Borjas null, [facility] 12/21/2024 13:42:17 Hep B, adolescent or pediatric 07/14/2000 completed Haylee Borjas null, [facility] 12/21/2024 13:42:17 DTaP 01/20/1996 completed Haylee Borjas null, [facility] 12/21/2024 13:42:17 Past Encounters Encounter ID Performer Location Encounter Start Date Encounter Closed Date Diagnosis/Indication Diagnosis SNOMED-CT Code Diagnosis ICD10 Code Diagnosis Note [id number] Gigi Curry MD [address] [facility] [address] [place] [id number] 12/21/2024 13:35:45 12/21/2024 13:53:49 Anesthesia of skin 919160645 R20.0 Health Concerns Section Related Observation LastModified by Organization Detai ls LastModified Time None Recorded Concern Status LastModified by Organization Details LastModified Time None Recorded Advance Directives Directive N: Payers Insurance Date Sequence Insurance Name Policy Number Policy Minaya Covered Member ID Minaya Member ID Guarantor Name 12/21/2024 1 [employer] [id number] Ozzy Harris [id number] Wilfrido Harris 12/21/2024 1 [facility] ([facility]) [id number] Wilfrido Harris [id number] Wilfrido Harris Notes Date Note Type Note Provider Name and Address Organization Details Recorded Time 5 text/html Wilfrido Harrisis a 34 year oldmalepresenting for care. Wilfrido Curry MD [address] [place] [address], [phone], [facility] 12/26/2024 08:39:03
[2025-03-25 12:17] VITALS: BP 118/84; PULSE 98; RESP 16; TEMP 36.6; O2SAT 100
[2025-03-25 12:19] LABS: Hematocrit 43.6 % (42.0-52.0); Hemoglobin 14.2 g/dL (14.0-18.0); Immature Granulocyte Percent A 0.2 % (0-0.5); Lymphocytes Absolute Auto 1.76 K/mm3 (0.9-3.2); Mean Corpuscular HGB Conc 32.6 g/dl (32-36); Mean Corpuscular Hemoglobin 28.0 pg (26-34); Mean Corpuscular Volume 86.0 fl (80-100); Nucleated Red Blood Cells Absolute Auto 0.000 K/mm3 (0.0-0.012); Nucleated Red Blood Cells Perc 0.0 % (0.0-0.2); Platelet Count Result 202 k/mm3 (150-375); Red Blood Count 5.07 M/mm3 (4.6-6.20); White Blood Count 6.0 K/mm3 (4.5-10.0)
[2025-03-25] MEDS: SODIUM CHLORIDE 0.9% IV 1,000 ML 999 ML (12:20)
[2025-03-25 12:32] LABS: Alanine Aminotransferase 29 U/L (6-50); Albumin Level 4.4 g/dL (3.5-5.1); Alkaline Phosphatase 58 U/L (38-126); Anion Gap 11 mmol/L (4-12); Aspartate Amino Transferase 35 U/L (17-59); Bilirubin,Total 0.4 mg/dL (0.2-1.3); Blood Urea Nitrogen 15 mg/dL (9-20); Calcium 9.7 mg/dL (8.4-10.2); Carbon Dioxide 22 mmol/L (22-30); Chloride 106 mmol/L (98-107); Estimated CRCL calculation 121 ml/min; Estimated Glomerular Filt Rate > 60; Glucose 109 mg/dL (65-110); INR 1.0; Lipase 140 U/L (23-300); Potassium 4.1 mmol/L (3.4-5.0); Prothrombin Time 13.3 Seconds (11.1-14.7); Sodium 139 mmol/L (137-145); Total Protein 7.5 g/dL (6.3-8.2)
[2025-03-25 12:33] LABS: Partial Thromboplastin Time 27.5 Seconds (22.3-36.8)
[2025-03-25 12:44] LABS: Troponin I < 0.012 ng/mL (0.000-0.034)
[2025-03-25 13:00] VITALS: BP 108/93; PULSE 90; RESP 16; TEMP 36.6; O2SAT 98
[2025-03-25 14:00] VITALS: BP 118/70; PULSE 85; RESP 16; TEMP 36.6; O2SAT 98
--- OUTSIDE RECORDS SUMMARY | 2025-03-25 14:10 | XMS_ITS | Clinical Summary ---
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
--- NOTE | 2025-03-25 14:18 | ED.ARRPALP ---
HPI - Arrhythmia/Palpitations General Chief Complaint: Arrhythmia/Palpitations Stated Complaint: palpitations Time Seen by Provider: 03/25/25 14:04 History of Present Illness HPI narrative: 34-year-old male presents to the emergency department for increased heart rate. Patient states this morning around 11:00 a.m. he was running interval sprints outside in the heat. After couple minutes of cooling down he noticed his watch was calculated his heart rate to be in the 180s. He reported mild associated shortness of breath. He denied chest pain, lightheadedness or syncope. States he sat down his heart rate improved, he walked home and came to the ED for further evaluation. He does note history of anxiety and also states that he did not have anything to eat prior to starting his workout. He notes he did not drink much water prior to working out and also is out in the heat all day yesterday for the 24 of March. Upon my evaluation the patient states he feels fine but is hungry. He denies any current palpitations, chest pain, shortness of breath, lower extremity edema. He did have a similar episode occur back in August, presented to the emergency department and had a negative workup. He followed up with PCP and has not had any issues since. No history of cardiac or thyroid disease. Related Data Allergies Allergy/AdvReac Type Severity Reaction Status Date / Time No Known Allergies Allergy Verified 09/22/24 09:22 Review of Systems Review of Systems: All systems reviewed & are unremarkable except as noted in HPI and below PMFSH Past Medical History Medical History Collar bone fracture Surgery 06/18/2023 Healthy adult male Surgical History Surgical History No pertinent past surgical history Family History Family History Grandparent Cerebrovascular accident Diabetes mellitus Social History Social History Smoking status: Current some day smoker (Has an occasional cigar - very rare) Tobacco type: cigars Alcohol intake: former Substance use: never Exam Narrative: GENERAL: Well-appearing, well-nourished, and in no acute distress. HEAD: Normocephalic, atraumatic. EYES: EOMI. ENT: Nares clear, no rhinorrhea or epistaxis. Mucous membranes moist. NECK: Supple. CHEST: Clear to auscultation. No respiratory distress. HEART: Regular rate and rhythm. No murmur heard. Normal peripheral pulses. ABDOMEN: Soft, nontender, nondistended, normal active bowel sounds. EXTREMITIES: Normal range of motion. No edema. SKIN: Warm, dry, no rash. NEURO: No focal deficits. Alert and oriented x3 Course Vital Signs Vital signs: Vital Signs Temperature 97.9 F 03/25/25 12:17 Pulse Rate 98 03/25/25 12:17 Respiratory Rate 16 03/25/25 12:17 Blood Pressure 118/84 03/25/25 12:17 Pulse Oximetry 100 03/25/25 12:17 Oxygen Delivery Room Air 03/25/25 12:17 Temperature 97.9 F 03/25/25 12:17 Pulse Rate 98 03/25/25 12:17 Respiratory Rate 16 03/25/25 12:17 Blood Pressure 118/84 03/25/25 12:17 Pulse Oximetry 100 03/25/25 12:17 Oxygen Delivery Room Air 03/25/25 12:17 MDM - Arrhythmia/Palpitations MDM Narrative Medical decision making narrative: 34-year-old male presents to the emergency department for elevated heart rate that occurred after running interval sprints this morning. Triage vitals are stable. Patient is currently asymptomatic but is hungry. He is afebrile and nontoxic appearing and resting comfortably in exam bed. His lab work shows no leukocytosis or anemia. Chemistries are unremarkable with no electrolyte derangements. Magnesium is within normal limits. Chest x-ray shows no focal infiltrate or effusion. EKG shows normal sinus rhythm with rate of 92 ppm, normal SD interval, normal QRS duration, normal QTC, no ischemic changes. Troponin is undetectable. TSH is within normal limits. Patient updated on results. He received a L of fluids in the ED. he remains asymptomatic and no events on telemetry while in ED. I advised the patient to drink plenty of fluids and stay hydrated. Given this is occurred previously in August, will provide cardiology follow-up for possible Holter monitor and further evaluation. I discussed strict ED return precautions. He is agreeable with the plan verbalized understanding. Discharged in stable condition. Lab Data 03/25/25 12:14 03/25/25 12:14 Labs: Lab Results 03/25/25 03/25/25 Range/Units 12:13 12:14 WBC 6.0 (4.5-10.0) K/mm3 RBC 5.07 (4.6-6.20) M/mm3 Hgb 14.2 (14.0-18.0) g/dL Hct 43.6 (42.0-52.0) % MCV 86.0 (80-100) fl MCH 28.0 (26-34) pg MCHC 32.6 (32-36) g/dl RDW 14.2 (11.5-14.5) % Plt Count 202 (150-375) k/mm3 MPV 10.7 H (7.4-10.4) fl Immature Gran % (Auto) 0.2 (0-0.5) % Neut % (Auto) 60.7 (45.5-73.1) % Lymph % (Auto) 29.2 (18.3-44.2) % Peach % (Auto) 7.1 (2.6-8.5) % Eos % (Auto) 2.5 (0-4.4) % Baso % (Auto) 0.3 (0.2-1.2) % Lymph # (Auto) 1.76 (0.9-3.2) K/mm3 Peach # (Auto) 0.4 (0.1-0.6) K/mm3 Eos # (Auto) 0.2 (0-0.3) K/mm3 Baso # (Auto) 0.0 (0.0-0.1) K/mm3 Abs Immat Gran (auto) 0.01 (0.00-0.031) K/mm3 Absolute Neuts (auto) 3.7 (1.3-6.7) K/mm3 Absolute Nucleated RBC 0.000 (0.0-0.012) K/mm3 Nucleated RBC % 0.0 (0.0-0.2) % PT 13.3 (11.1-14.7) Seconds INR 1.0 APTT 27.5 (22.3-36.8) Seconds Sodium 139 (137-145) mmol/L Potassium 4.1 (3.4-5.0) mmol/L Chloride 106 (98-107) mmol/L Carbon Dioxide 22 (22-30) mmol/L Anion Gap 11 (4-12) mmol/L BUN 15 D (9-20) mg/dL Creatinine 0.85 (0.7-1.3) mg/dL Estim Creat Clear Calc 121 ml/min Estimated GFR > 60 (59 - ) Glucose 109 (65-110) mg/dL Calcium 9.7 (8.4-10.2) mg/dL Magnesium 1.7 (1.6-2.3) mg/dL Total Bilirubin 0.4 (0.2-1.3) mg/dL AST 35 (17-59) U/L ALT 29 (6-50) U/L Alkaline Phosphatase 58 (38-126) U/L Troponin I < 0.012 (0.000-0.034) ng/mL Total Protein 7.5 (6.3-8.2) g/dL Albumin 4.4 (3.5-5.1) g/dL Lipase 140 (23-300) U/L TSH (Reflex) 0.930 (0.465-4.68) uIU/mL Discharge Plan Discharge Clinical Impression: Heart palpitations Patient Disposition: Home Condition: Stable Instructions: Antibiotic Form, Heart Palpitations (DC) Additional Instructions: You were evaluated in the emergency department for palpitations your heart rate jumping to 180 after working out. Your workup here is reassuring. Please make sure to drink plenty of fluids including water, Gatorade and Pedialyte. Follow-up closely with a spring floor service worker that she may need outpatient Holter monitor for further evaluation as discussed. Return to the emergency department if you develop chest pain, shortness of breath, coughing up blood, swelling to her legs, loss of consciousness, or other concerning symptoms. Patient Language: Turkmen Prescriptions: No Action propranolol 40 mg tablet 40 mg PO DAILY PRN (Reason: anxiety) Qty: 30 5RF Follow-up/Referrals: Callum Huffman MD [Physician] - Rony Nunn MD [Primary Care Provider] -
[2025-03-25 14:23] LABS: Magnesium 1.7 mg/dL (1.6-2.3)
[2025-03-25 14:54] LABS: Thyroid Stimulating Hormone Reflex 0.930 uIU/mL (0.465-4.68)
[2025-03-25 15:00] VITALS: BP 123/71; PULSE 76; RESP 16; TEMP 36.6; O2SAT 100
== END 2025-03-25 15:17 | disposition home or self-care (01) ==
PROVIDERS: Emergency Medicine; Emergency Provider Physician Assistant; PCP Family Medicine
DX: R00.2 Palpitations (principal); F17.290 Nicotine dependence, other tobacco product, uncomplicated
CPT/HCPCS: 36415; 71046; 80053; 83690; 83735; 84443; 84484; 85025; 85610; 85730; 93005; 99284; J7030

== ENCOUNTER 2025-03-26 04:54 | Emergency (ER) | payer BC, SELFPAY ==
[2025-03-26] VITALS (14 sets, daily range): BP systolic 114–134; BP diastolic 81–101; PULSE 72–91; RESP 12–22; TEMP 36.8; O2SAT 97–100
--- NOTE | ~2025-03-26 | XR_ITS ---
CHEST RADIOGRAPH CLINICAL HISTORY: palpitations . COMPARISON: 03/25/2025 at 12:30 PM TECHNIQUE: Single portable view of the chest. FINDINGS The cardiomediastinal silhouette is unremarkable. The lungs remain clear. Fixation hardware in the left clavicle, unchanged from prior. IMPRESSION: No focal infiltrate or effusion. Reviewed, dictated and finalized at location A.
--- NOTE | 2025-03-26 04:56 | ECG_ITS ---
Test Date: 2025-03-26 05:01:33 Measurements Intervals [place] Rate: 89 P: 55 MO: 166 QRS: 50 QRSD: 106 T: 38 QT: 378 QTc: 460 Interpretive Statements SINUS RHYTHM Compared to ECG 03/25/2025 12:09:44 No significant changes Electronically Signed On 03-26-2025 13:48:36 CDT by Callum Huffman M.D.
--- OUTSIDE RECORDS SUMMARY | 2025-03-26 04:56 | XMS_ITS | Clinical Summary ---
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
[2025-03-26] MEDS: LACTATED RINGERS 1,000 ML 999 ML IV CONT (05:13)
[2025-03-26 05:16] LABS: Hematocrit 43.4 % (42.0-52.0); Hemoglobin 14.2 g/dL (14.0-18.0); Immature Granulocyte Percent A 0.3 % (0-0.5); Lymphocytes Absolute Auto 2.36 K/mm3 (0.9-3.2); Mean Corpuscular HGB Conc 32.7 g/dl (32-36); Mean Corpuscular Hemoglobin 28.5 pg (26-34); Mean Corpuscular Volume 87.1 fl (80-100); Nucleated Red Blood Cells Absolute Auto 0.000 K/mm3 (0.0-0.012); Nucleated Red Blood Cells Perc 0.0 % (0.0-0.2); Platelet Count Result 207 k/mm3 (150-375); Red Blood Count 4.98 M/mm3 (4.6-6.20); White Blood Count 6.6 K/mm3 (4.5-10.0)
--- NOTE | 2025-03-26 05:19 | ED_ITS ---
HPI - Arrhythmia/Palpitations General Chief Complaint: Arrhythmia/Palpitations Stated Complaint: palpations Time Seen by Provider: 03/26/25 05:06 History of Present Illness HPI narrative: 34-year-old otherwise healthy appearing male presenting to the emergency department for palpitations. 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 He states that he was here yesterday for palpitations and had an unremarkable workup but was told to come back if he has any recurrence of symptoms. He presents today as he was having increased heart rate after exercising. He states that he was working out significantly hard knows his heart rate was in the 120s to 130s which is not unusual for him but after he had stopped and tried to rest he notes that heart rate was high in the 180s similar to having yesterday. He was also out in the hot sun and outside for the last few days but has been drinking water. Denies any muscle aches or myalgias, no shortness of breath, nausea, vomiting, lightheadedness or syncope. This has happened to him several times previously last year and had a very unremarkable workup and discharged home followed by also being seen here yesterday with an unremarkable workup and discharged home. Has not established with a reference archivist. He does endorse not taking any of his propranolol yesterday before he arrived to the emergency department for his symptoms and thinks it could possibly be related to that. He presently has no palpitations or symptoms but states that when he got up to go the bathroom in the middle of the night he felt like his heart was racing once again and lasted for 5 minutes which was aborted after he took deep breathing exercises. Related Data Allergies Allergy/AdvReac Type Severity Reaction Status Date / Time No Known Allergies Allergy Verified 03/26/25 05:06 Review of Systems 2 Review of Systems: As reviewed above in HPI [facility] Past Medical History Medical History Collar bone fracture Surgery 06/18/2023 Healthy adult male Surgical History Surgical History No pertinent past surgical history Family History Family History Grandparent Cerebrovascular accident Diabetes mellitus Social History Social History Smoking status: Current some day smoker (Has an occasional cigar - very rare) Tobacco type: cigars Alcohol intake: former Substance use: never Exam 2 Narrative: GENERAL: [Well-appearing, well-nourished, and in no acute distress.] HEAD: [Normocephalic, atraumatic.] EYES: [PERRLA and EOMI.] ENT: Nares clear, no rhinorrhea or epistaxis. Mucous membranes moist. NECK: Supple. CHEST: [Clear to auscultation. No respiratory distress.] HEART: [Regular rate and rhythm]. No murmur heard. [Normal peripheral pulses.] ABDOMEN: [Soft, nondistended], [nontender], [No rigidity or guarding] EXTREMITIES: Normal range of motion. [No edema.] SKIN: Warm, dry, no rash. NEURO: [No focal deficits]. Alert and oriented [x3.] PSYCH: [Normal mood and affect.] Course Vital Signs Vital signs: Vital Signs Temperature 36.8 C 03/26/25 04:59 Pulse Rate 86 03/26/25 04:59 Respiratory Rate 16 03/26/25 04:59 Blood Pressure 134/89 03/26/25 04:59 Pulse Oximetry 100 03/26/25 04:59 Oxygen Delivery Room Air 03/26/25 04:59 Temperature 36.8 C 03/26/25 04:59 Pulse Rate 72 03/26/25 06:15 Respiratory Rate 17 03/26/25 06:15 Blood Pressure 119/81 03/26/25 06:01 Pulse Oximetry 99 03/26/25 06:15 Oxygen Delivery Room Air 03/26/25 04:59 MDM - Arrhythmia/Palpitations MDM Narrative Medical decision making narrative: 34-year-old otherwise healthy appearing male presenting to the emergency department for palpitations. 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 He states that he was here yesterday for palpitations and had an unremarkable workup but was told to come back if he has any recurrence of symptoms. He presents today as he was having increased heart rate after exercising. He states that he was working out significantly hard knows his heart rate was in the 120s to 130s which is not unusual for him but after he had stopped and tried to rest he notes that heart rate was high in the 180s similar to having yesterday. He was also out in the hot sun and outside for the last few days but has been drinking water. Denies any muscle aches or myalgias, no shortness of breath, nausea, vomiting, lightheadedness or syncope. This has happened to him several times previously last year and had a very unremarkable workup and discharged home followed by also being seen here yesterday with an unremarkable workup and discharged home. Has not established with a reference archivist. He does endorse not taking any of his propranolol yesterday before he arrived to the emergency department for his symptoms and thinks it could possibly be related to that. He presently has no palpitations or symptoms but states that when he got up to go the bathroom in the middle of the night he felt like his heart was racing once again and lasted for 5 minutes which was aborted after he took deep breathing exercises. Patient is not in any acute distress, resting comfortably in the stretcher with strong symmetric 2+ pulses with regular rate and rhythm with a heart rate in the 80s. Clear breath sounds throughout, no tachypnea. No hypertension, tachycardia, fever or hypoxia. He had unremarkable workup yesterday and otherwise appears well today but could be having some transient dysrhythmias or also could be related to his labs and propranolol dose given that he is on a high dose and takes it daily and did not take it yesterday or today. Could also be a component of anxiety or anxiety related to his health issues and on review of the EMR he stated previously that he had a friend young age from heart attack but he himself has no cardiac history to his knowledge and a family history of sudden cardiac disease or . Cardiac workup ordered this time including CBC, CMP, PT, PTT, troponin, EKG and chest x-ray. TSH, CPK ordered. Was given a fluid bolus and placed on continuous pulse ox and retail aide and re-evaluated. Patient's laboratory studies are unremarkable with normal. No leukocytosis or anemia. Normal platelet count. Normal troponin, normal TSH. Negative CPK. Normal electrolytes. Negative D-dimer. UDS negative. Chest x-ray without any acute findings. We discussed plan of care with the patient going forward and encouraged him to follow up with his regular primary care provider on outpatient basis and keep the referral for Cardiology to get a Holter monitor set up. We discussed taking his propranolol regularly and not missing any dosages as this can cause some reflex tachycardia and symptoms as well. He was made aware of this and discharged home. Medical Records Attestation: I reviewed the patient's medical records. Lab Data Attestation: I reviewed the patient's lab results. 03/26/25 05:09 03/26/25 05:09 Labs: Lab Results 03/26/25 03/26/25 Range/Units 05:09 06:12 WBC 6.6 (4.5-10.0) K/mm3 RBC 4.98 (4.6-6.20) M/mm3 Hgb 14.2 (14.0-18.0) g/dL Hct 43.4 (42.0-52.0) % MCV 87.1 (80-100) fl MCH 28.5 (26-34) pg MCHC 32.7 (32-36) g/dl RDW 14.3 (11.5-14.5) % Plt Count 207 (150-375) k/mm3 MPV 10.5 H (7.4-10.4) fl Immature Gran % (Auto) 0.3 (0-0.5) % Neut % (Auto) 49.8 (45.5-73.1) % Lymph % (Auto) 35.9 (18.3-44.2) % [place] % (Auto) 8.8 H (2.6-8.5) % Eos % (Auto) 4.6 H (0-4.4) % Baso % (Auto) 0.6 (0.2-1.2) % Lymph # (Auto) 2.36 (0.9-3.2) K/mm3 [place] # (Auto) 0.6 (0.1-0.6) K/mm3 Eos # (Auto) 0.3 (0-0.3) K/mm3 Baso # (Auto) 0.0 (0.0-0.1) K/mm3 Abs Immat Gran (auto) 0.02 (0.00-0.031) K/mm3 Absolute Neuts (auto) 3.3 (1.3-6.7) K/mm3 Absolute Nucleated RBC 0.000 (0.0-0.012) K/mm3 Nucleated RBC % 0.0 (0.0-0.2) % PT 13.1 (11.1-14.7) Seconds INR 1.0 APTT 30.2 (22.3-36.8) Seconds D-Dimer 0.37 (<0.48) ug/mL Sodium 139 (137-145) mmol/L Potassium 3.8 (3.4-5.0) mmol/L Chloride 105 (98-107) mmol/L Carbon Dioxide 24 (22-30) mmol/L Anion Gap 10 (4-12) mmol/L BUN 15 (9-20) mg/dL Creatinine 0.86 (0.7-1.3) mg/dL Estim Creat Clear Calc 116 ml/min Estimated GFR > 60 (59 - ) Glucose 99 (65-110) mg/dL Calcium 9.4 (8.4-10.2) mg/dL Total Bilirubin 0.4 (0.2-1.3) mg/dL AST 33 (17-59) U/L ALT 28 (6-50) U/L Alkaline Phosphatase 59 (38-126) U/L Total Creatine Kinase 150 (55-170) U/L Troponin I < 0.012 (0.000-0.034) ng/mL NT-Pro-B Natriuret Pep < 20 (19.9-100) pg/mL Total Protein 7.2 (6.3-8.2) g/dL Albumin 4.3 (3.5-5.1) g/dL TSH (Reflex) 1.110 (0.465-4.68) uIU/mL Urine Opiates Screen Pending Urine Methadone Screen Pending Ur Barbiturates Screen Pending Ur Phencyclidine Scrn Pending Ur Amphetamine Screen Pending U Benzodiazepines Scrn Pending Urine Cocaine Screen Pending U Cannabinoids Screen Pending Discharge Plan Discharge Clinical Impression: Heart palpitations Patient Disposition: Home Condition: Stable Instructions: Antibiotic Form Additional Instructions: Follow-up with your primary care provider and the referred reference archivist. Have a Holter monitor set up for continued monitoring of your heart to see if there is any symptomatic palpitations or concerns that were identified. Your laboratory studies and workup appears unremarkable. Take her propranolol regularly and do not miss any dosages as reflex tachycardia can be a side effect of missing dosages. Patient Language: [place] Prescriptions: No Action propranolol 40 mg tablet 40 mg PO DAILY PRN (Reason: anxiety) Qty: 30 5RF Follow-up/Referrals: Callum Huffman MD [Physician] - 3 Days (Recurrent palpitations) Rony Nunn MD [Primary Care Provider] - Time of Disposition: 06:47
--- OUTSIDE RECORDS SUMMARY | 2025-03-26 05:22 | XMS_ITS | Clinical Summary ---
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
[2025-03-26 05:26] LABS: Alanine Aminotransferase 28 U/L (6-50); Albumin Level 4.3 g/dL (3.5-5.1); Alkaline Phosphatase 59 U/L (38-126); Anion Gap 10 mmol/L (4-12); Aspartate Amino Transferase 33 U/L (17-59); Bilirubin,Total 0.4 mg/dL (0.2-1.3); Blood Urea Nitrogen 15 mg/dL (9-20); Calcium 9.4 mg/dL (8.4-10.2); Carbon Dioxide 24 mmol/L (22-30); Chloride 105 mmol/L (98-107); Creatine Kinase 150 U/L (55-170); Estimated CRCL calculation 116 ml/min; Estimated Glomerular Filt Rate > 60; Glucose 99 mg/dL (65-110); Potassium 3.8 mmol/L (3.4-5.0); Sodium 139 mmol/L (137-145); Total Protein 7.2 g/dL (6.3-8.2)
[2025-03-26 05:27] LABS: INR 1.0; Prothrombin Time 13.1 Seconds (11.1-14.7)
[2025-03-26 05:28] LABS: Partial Thromboplastin Time 30.2 Seconds (22.3-36.8)
[2025-03-26 05:35] LABS: NT Pro B Type Natriuretic Pept < 20 pg/mL (19.9-100)
[2025-03-26 05:38] LABS: Troponin I < 0.012 ng/mL (0.000-0.034)
[2025-03-26 05:58] LABS: Thyroid Stimulating Hormone Reflex 1.110 uIU/mL (0.465-4.68)
[2025-03-26 06:39] LABS: Cannabinoid Screen Urine Negative (Negative)
== END 2025-03-26 06:59 | disposition home or self-care (01) ==
PROVIDERS: Emergency Provider Student in an Organized Health Care Education/Training Program; PCP Family Medicine
DX: R00.2 Palpitations (principal)
CPT/HCPCS: 36415; 71045; 80053; 80307; 82550; 83880; 84443; 84484; 85025; 85380; 85610; 85730; 93005; 96360; 99284; J7120

== ENCOUNTER 2025-04-15 13:49 | Emergency (ER) | payer BC, SELFPAY ==
--- NOTE | ~2025-04-15 | XR_ITS ---
EXAM: XR elbow RT 2V DATE: 04/15/2025 15:08 HISTORY: Fall . COMPARISON: None available. FINDINGS: Normal mineralization. No fracture or dislocation. No lytic or blastic lesion. Joint space s are maintained. No erosion or periosteal change. Anterior displacement of the anterior fat pad. IMPRESSION: Right elbow joint effusion, which can accompany occult fractures, likely of the radial he ad in a patient of this age. Reviewed, dictated and finalized at location K. IMPRESSION: Right elbow joint effusion, which can accompany occult fractures, l ikely of the radial head in a patient of this age.
--- NOTE | ~2025-04-15 | XR_ITS ---
EXAM: XR wrist RT min 3V DATE: 04/15/2025 16:33 HISTORY: fall, pain . COMPARISON: None available. FINDINGS: Normal mineralization. No fracture or dislocation. No lytic or blastic lesion. Joint space s are maintained. No erosion or periosteal change. Soft tissues within normal limits. IMPRESSION: No acute osseous finding in the right wrist. Reviewed, dictated and finalized at location K.
--- OUTSIDE RECORDS SUMMARY | 2025-04-15 13:52 | XMS_ITS | Data Portability ---
Author Organization [facility], [address] [facility] ([place]) Address [address] [place] [address] Assessment Encounter Date Assessment Date Assessment LastModified [...] if he has any further problems. keith [email or web address] Not available 12/21/2024 16:57:17 Plan of Treatment [...] Social History Question Answer Notes LastModified by [email or web address] Details LastModified Time Tobacco Smoking Status Never [...] Functional Status Question Answer Note LastModified by [email or web address] Details LastModified Time Do you use any illicit or recreational drugs? No [email or web address] Information not available 12/20/2024 What is your level of alcohol consumption? None [email or web address] Information not available 12/20/2024 Are you currently employed? 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 Moderate [email or web address] Information not available 12/20/2024 Mental Status None recorded. Family History Relationship Description Onset Age of this Age Resolved Age Notes LastModified by Organization Details LastModified Time Maternal Grandfather Family history of malignant neoplasm [email or web address] Not available 2024 08:53:50 Paternal Grandfather Diabetes mellitus [email or web address] Not available 2024 08:53:50 Unspecified Relation Heart disease [email or web address] Not available 2024 08:53:50 Paternal Grandmother Cerebrovascu lar accident [email or web address] Not available 09/2024 08:53:50 Medical History Condition Response Anxiety Disorder N Diabetes N Bleeding Disorder N Attention-deficit Hyperactivity Disorder N High Blood Pressure N Arthritis N Hyperlipidemia N Cancer N Thyroid Problems N Stroke N Asthma N Depression N COPD N Seizures N Anemia N Heart Disease N Fibromyalgia N Osteoporosis N Kidney Disease N Immunizations Vaccine Type Date Status Note Provider Nam e and Address Organization Details Recorded Time Hib, unspecified formulation 03/21/[facility] 13:42:17 MMR 01/20/1996 [facility] 13:42:17 MMR 01/25/1992 [facility] 13:42:17 COVID-19, mRNA, LNP-S, PF, 30 mcg/0.3 mL dose 05/10/2021 [facility] 13:42:17 COVID-19, mRNA, LNP-S, PF, 30 mcg/0.3 mL dose 06/03/2021 [facility] 13:42:17 DTP 1990 [facility] 13:42:17 DTP 1990 [facility] 13:42:17 DTP 01/19/1991 completed Haylee Borjas null, [facility] 12/21/2024 13:42:17 DTP 01/25/1992 completed Haylee Borjas null, [facility] 12/21/2024 13:42:17 OPV, trivalent 1990 completed Haylee Borjas null, [facility] 12/21/2024 13:42:17 OPV, trivalent 1990 completed Haylee Borjas null, [facility] 12/21/2024 13:42:17 OPV, trivalent 01/20/1996 completed Haylee Borjas null, [facility] 12/21/2024 13:42:17 OPV, trivalent 01/25/1992 completed Haylee Borjas null, [facility] 12/21/2024 13:42:17 Hep B, adolescent or pediatric 12/16/2000 completed Haylee Borjas null, [facility] 12/21/2024 13:42:17 Hep B, adolescent or pediatric 02/23/2001 completed Haylee Borjas null, [facility] 12/21/2024 13:42:17 Hep B, adolescent or pediatric 07/14/2000 completed Haylee Borjas null, [facility] 12/21/2024 13:42:17 DTaP 01/20/1996 completed Haylee Borjas null, [facility] 12/21/2024 13:42:17 Past Encounters Encounter ID Performer Location Encounter Start Date Encounter Closed Date Diagnosis/Indication Diagnosis SNOMED-CT Code Diagnosis ICD10 Code Diagnosis Note [id number] Gigi Curry MD [address] [facility] ([place]) [address] [place] [address] [place] [address] 12/21/2024 13:35:45 12/21/2024 13:53:49 Anesthesia of skin 532805670 R20.0 Health Concerns Section Related Observation LastModified by Organization Detai ls LastModified Time None Recorded Concern Status LastModified by Organization Details LastModified Time None Recorded Advance Directives Directive N: Payers Insurance Date Sequence Insurance Name Policy Number Policy Minaya Covered Member ID Minaya Member ID Guarantor Name 12/21/2024 1 [facility] [id number] Ozzy Harris [id number] Wilfrido Harris 12/21/[address] [facility] [id number] Wilfrido Harris [id number] Wilfrido Harris Notes Date Note Type Note Provider Name and Address Organization Details Recorded Time 5 text/html Wilfrido Harrisis a 34 year oldmalepresenting for care. Wilfrido Curry MD [address] [place] [address], [phone], [facility] 12/26/2024 08:39:03
--- OUTSIDE RECORDS SUMMARY | 2025-04-15 13:52 | XMS_ITS | Clinical Summary ---
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
[2025-04-15 14:18] VITALS: BP 123/72; PULSE 77; RESP 18; TEMP 36.7; O2SAT 98
--- OUTSIDE RECORDS SUMMARY | 2025-04-15 16:39 | XMS_ITS | Clinical Summary ---
Author Organization 

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
[2025-04-15] MEDS: TETANUS,DIPHTHERIA,AC PERTUSSIS ADULT (0.5 ML) BOOSTRIX IM (17:06)
[2025-04-15 18:02] VITALS: BP 118/68; PULSE 62; RESP 16; TEMP 36.6; O2SAT 100
== END 2025-04-15 18:12 | disposition home or self-care (01) ==
PROVIDERS: Emergency Provider General Practice; PCP Family Medicine
DX: S59.901A Unspecified injury of right elbow, initial encounter (principal); M25.421 Effusion, right elbow; V18.4XXA Pedal cycle driver injured in noncollision transport accident in traffic accident, initial encounter; Z23 Encounter for immunization
CPT/HCPCS: 73070; 73110; 90471; 90715; 99284; A4565

== ENCOUNTER 2025-04-20 13:19 | Emergency (ER) | payer BC, SELFPAY ==
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
[2025-04-20 13:33] VITALS: BP 136/90; PULSE 78; RESP 16; TEMP 36.6; O2SAT 99
== END 2025-04-20 14:26 | disposition home or self-care (01) ==
PROVIDERS: Emergency Provider Nurse Practitioner Family; PCP Family Medicine
DX: S80.212A Abrasion, left knee, initial encounter (principal); L03.116 Cellulitis of left lower limb; V18.4XXA Pedal cycle driver injured in noncollision transport accident in traffic accident, initial encounter; Z72.0 Tobacco use
CPT/HCPCS: 99213; G0463